=== PATIENT | male | born 1980 | race American Indian/Alaskan Native ===

== ENCOUNTER 2017-06-08 20:26 | Emergency (ER) | payer SELFPAY ==
[2017-06-08 20:46] VITALS: BP 132/85
[2017-06-08] MEDS ORDERED: TYLENOL PO ONE (20:47)
[2017-06-08] MEDS ORDERED: TYLENOL ONE (20:48)
--- NOTE | 2017-06-08 22:04 | XRay Report ---
FINAL REPORT PROCEDURE: XR CHEST ROUTINE 2V TECHNIQUE: PA and lateral chest radiographs were obtained. CPT 09483 HISTORY: sob COMPARISON: No prior studies are available for comparison. FINDINGS: Heart: Normal. Mediastinum/Vessels: Normal. Lungs/Pleural space: Normal. Bony thorax: No acute osseous abnormality. Other: IMPRESSION: Negative exam..
[2017-06-08] MEDS ORDERED: MOTRIN PO ONE (23:21)
[2017-06-08] MEDS ORDERED: MOTRIN ONE (23:22)
--- NOTE | 2017-06-09 03:21 | Emergency Department Report ---
Minor Respiratory - HPI Chief Complaint: Upper Respiratory Infection Stated Complaint: FLU SX Time Seen by Provider: 06/09/17 01:54 Duration: 1 week Severity: moderate Minor Respiratory: Yes Rhinorrhea, Yes Able to Tolerate Fluids, Yes Cough, Yes Sick Contacts, Yes Chest Pain (with cough), Yes Fever, No Sore Throat, No Ear Pain, No Hemoptysis, No Shortness of Breath Other History: This is a 36 y.o. male that presents with headache, back pain, chills, cough, and fever for 1 week. He is taking nyquil and dayquil with no improvement of symptoms. Reports fever will subside and return in 2-4 hours after taking medication. States throat is painful with swallowing food or liquid. Denies SOB, N/V, abdominal pain, body aches, and weakness. ED Review of Systems ROS: Stated complaint: FLU SX Other details as noted in HPI Constitutional: chills, fever. denies: malaise, weakness ENT: throat pain, congestion. denies: ear pain Respiratory: cough. denies: shortness of breath, wheezing Cardiovascular: denies: chest pain, palpitations Gastrointestinal: denies: abdominal pain, nausea, diarrhea Musculoskeletal: back pain (mid back pain). denies: joint swelling, arthralgia Neurological: denies: headache, weakness, numbness, paresthesias Psychiatric: denies: anxiety, depression ED Past Medical Hx - Past Medical History Previous Medical History?: No - Surgical History Past Surgical History?: No - Social History Smoking Status: Current Every Day Smoker Substance Use Type: None - Medications Home Medications: Home Medications Medication Instructions Recorded Confirmed Last Taken Type Benzonatate 200 mg PO TID PRN #30 capsule 06/09/17 Unknown Rx Cetirizine HCl [Zyrtec] 10 mg PO DAILY #30 tablet 06/09/17 Unknown Rx Fluticasone [Flonase] 1 spray NS QDAY #1 bottle 06/09/17 Unknown Rx Minor Respiratory Exam - Exam General: Vital signs noted. No distress. Alert and acting appropriately. HEENT: Yes Pharyngeal Erythema, Yes Moist Mucous Membranes, Yes Rhinorrhea, No Pharyngeal Exudates, No Conjuctival Injection, No Frontal Tenderness, No Maxillary Tenderness Ear: Neither TM Bulge, Neither TM Erythema, Neither EAC Pain, Neither EAC Discharge Neck: Yes Supple, No Adenopathy Lungs: Yes Good Air Exchange, Yes Cough, No Wheezes, No Ronchi, No Stridor, No Labored Respirations, No Retractions, No Use of Accessory Muscles, No Other Abnormal Lung Sounds Heart: Yes Regular, No Murmur Abdomen: Yes Normal Bowel Sounds, No Tenderness, No Peritoneal Signs Skin: No Rash, No Edema Neurologic: Alert and oriented, no deficits. Musculoskeletal: Unremarkable. ED Course Vital Signs 06/08/17 06/08/17 06/08/17 20:42 20:49 23:20 Temperature 100 F H 101.1 F H Pulse Rate 96 H 91 H Respiratory 18 18 Rate Blood Pressure 132/85 O2 Sat by Pulse 98 Oximetry ED Medical Decision Making - Radiology Data Radiology results: report reviewed CXR normal - Medical Decision Making This is a 36 y.o. male that presents with URI symptoms. Patient examined by me and stable. No distress noted. Temperature elevated while waiting in ER. Given tylenol 650 mg po and motrin 800 mg po once in ER. Obtained CXR and influenza swab. CXR normal. Discharged home. Encouraged to do supportive care for URI. No medication ordered. Return to work tomorrow. Critical care attestation.: If time is entered above; I have spent that time in minutes in the direct care of this critically ill patient, excluding procedure time. ED Disposition Clinical Impression: Viral syndrome Upper respiratory infection Qualifiers: URI type: acute nasopharyngitis (common cold) Qualified Code(s): J00 - Acute nasopharyngitis [common cold] Disposition: - TO HOME OR SELFCARE Is pt being admited?: No Does the pt Need Aspirin: No Condition: Stable Instructions: Viral Syndrome (ED), Cold Symptoms (ED), Upper Respiratory Infection (ED) Additional Instructions: Increase fluid intake and rest. Wash hands frequently. Continue taking tylenol or ibuprofen to control fever. F/U with Primary Care Provider 2-3 days. Return to ER if fever, SOB, or difficulty breathing after 48 hours of supportive care. Prescriptions: Benzonatate 200 mg PO TID PRN #30 capsule PRN Reason: Cough Cetirizine HCl [Zyrtec] 10 mg PO DAILY #30 tablet Fluticasone [Flonase] 1 spray NS QDAY #1 bottle Referrals: [facility] [Outside] - 3-5 Days [facility] [Outside] - 3-5 Days [facility] [Outside] - 3-5 Days Forms: Work/School Release Form(ED) Time of Disposition: 03:29 Print Language: MALTESE
== END 2017-06-09 03:38 | disposition home or self-care (01) ==
LOC: ED 20:26
DX: B34.9 Viral infection, unspecified (principal); J00 Acute nasopharyngitis [common cold]; F17.200 Nicotine dependence, unspecified, uncomplicated
CPT/HCPCS: 71046; 87400